=== PATIENT | female | born 1975 | race Caucasian/White ===

== ENCOUNTER 2016-10-27 15:40 | Emergency (ER) | payer BC ==
[~2016-10-27] VITALS: Ht 152.4 cm; Wt 75.0 kg
[~2016-10-27 15:40] MED LIST: ALBU6.7H INH; GABA300C10 PO; HYDR-3307 PO; IBUP200C PO; LEVO750T26 PO; PRED20TA PO; TRAM50TA2 PO
[2016-10-27 15:46] VITALS: BP 130/91
[2016-10-27] MEDS ORDERED: HYDROcodone/APAP 5/325 TABLET ONE (16:35)
[2016-10-27] MEDS ORDERED: HYDROcodone/APAP 5/325 TABLET PO ONE (17:00)
== END 2016-10-27 16:39 | disposition home or self-care (01) ==
LOC: ED 16:20
DX: K02.9 Dental caries, unspecified (principal)
CPT/HCPCS: 99283

== ENCOUNTER 2016-10-28 11:00 | Emergency (ER) | payer BC ==
[~2016-10-28] VITALS: Ht 152.4 cm; Wt 75.1 kg
[2016-10-28] MEDS ORDERED: SODIUM CHLORIDE 0.9% 1,000ML IVBOLUS ONE (12:00)
[2016-10-28] MEDS ORDERED: SODIUM CHLORIDE FLUSH 10ML SYR IVF ONE (12:00)
[2016-10-28 12:17] LABS: BLOOD UREA NITROGEN 11 mg/dL (7-18)
[2016-10-28] MEDS ORDERED: OMNIPAQUE 350 MG/ML, 100ML BOTTLE ONE (13:14)
[2016-10-28] MEDS ORDERED: OXYcodone/APAP 10/325MG TABLET ONE (13:39)
[2016-10-28 13:44] VITALS: BP 117/78
[2016-10-28] MEDS ORDERED: OXYcodone/APAP 10/325MG TABLET PO ONE (14:00)
[2016-10-28] MEDS ORDERED: CLINDAMYCIN PMX 600MG/50ML 50 ML ONE (14:26)
[2016-10-28] MEDS ORDERED: CLINDAMYCIN PMX 600MG/50ML 50 ML IV ONE (14:30)
[2016-10-28] MEDS ORDERED: ONDANSETRON 2MG/ML, 2ML ONE (15:19)
[2016-10-28] MEDS ORDERED: ONDANSETRON 2MG/ML, 2ML IVPush ONE (15:30)
== END 2016-10-28 16:44 | disposition home or self-care (01) ==
LOC: ED 11:37
DX: K08.89 Other specified disorders of teeth and supporting structures (principal); I10 Essential (primary) hypertension; Z90.49 Acquired absence of other specified parts of digestive tract; Z88.0 Allergy status to penicillin
CPT/HCPCS: 36415; 70487; 80048; 82040; 83605; 85025; 93005; 96365; 96375; 99285; J2405; J7030; Q9967

== ENCOUNTER 2018-07-18 12:59 | Emergency (ER) | payer BC, OTHER ==
[~2018-07-18] VITALS: Ht 152.4 cm; Wt 67.3 kg
[~2018-07-18 12:59] MED LIST changes: +IBUP-1623 PO; -IBUP200C PO
[2018-07-18 13:03] VITALS: BP 112/70
--- NOTE | 2018-07-18 13:43 | NUR ---
PT WHEELED BACK FROM LOBBY TO ROOM AT THIS TIME. NAD NOTED.
[2018-07-18] MEDS ORDERED: HYDROcodone/APAP 5/325 TABLET PO ONE (14:00)
[2018-07-18] MEDS ORDERED: HYDROcodone/APAP 5/325 TABLET ONE (14:07)
== END 2018-07-18 14:42 | disposition home or self-care (01) ==
LOC: ED 14:29
DX: S93.525A Sprain of metatarsophalangeal joint of left lesser toe(s), initial encounter (principal); W19.XXXA Unspecified fall, initial encounter; Y93.89 Activity, other specified; Y92.009 Unspecified place in unspecified non-institutional (private) residence as the place of occurrence of the external cause; Y99.8 Other external cause status
CPT/HCPCS: 99283